=== PATIENT | male | born 1950 | race Caucasian/White ===

== ENCOUNTER 2022-12-27 15:45 | Outpatient (CLI) | payer MEDICARE, SELFPAY ==
--- NOTE | 2022-12-27 16:30 | PET_ITS ---
EXAMINATION: FDG PET-CT INDICATIONS: A 72-year-old male with history of colorectal carcinoma presenting for apparent initial staging examination. COMPARISON EXAMINATION: None available. INDEX LESION SIZE SUV INTERPRETATION Proximal ascending colon 53.5-mm 9.6 Fulfills quantitative criteria for viable neoplasm Distal transverse colon 49.6-mm 23.0 Fulfills quantitative criteria for viable neoplasm Right lower lung field, right lower lobe 14.6-mm 2.8 Fulfills quantitative criteria for viable neoplasm, histopathologic investigation recommended NON-INDEX LESION SIZE SUV INTERPRETATION Superior-carinal level mediastinum 2.7 (max) Quantitative criteria for viable neoplasm are not fulfilled TECHNIQUE: Following the intravenous administration of 12.4 mCi of F-18 deoxyglucose via the right hand, multiplanar image acquisitions of the neck, chest, abdomen and pelvis to level of mid thigh, obtained at one hour post radiopharmaceutical administration contemporaneously interpreted with the current CT of the neck, chest, abdomen and pelvis, to level of mid thigh, dated 12/27/22 via coregistration reveals: BLOOD GLUCOSE LEVEL:?? 191 mg/dl?HEIGHT:?73 inches?WEIGHT: 210 lbs. FINDINGS: Head/Neck: There is no evidence of abnormal increased glucose metabolism in the pharyngeal mucosal space, parapharyngeal space, bilateral-lateral and anterior neck, hypopharynx and distribution of the laryngeal structures. The visualized portion of the cerebral cortical-subcortical structures demonstrate symmetric and preserved glucose metabolism. CHEST: Mild increased radiopharmaceutical concentration is defined in the superior-carinal level mediastinum to the left and right of the midline with a calculated maximal standard uptake value of 2.7. Strict quantitative criteria for viable neoplasm are not fulfilled. An increase in radiopharmaceutical concentration is noted in the right lower posteromedial lung zone, right lower lobe generating a calculated maximal standard uptake value of 2.8. The maximal axial diameter of the metabolic, morphologic abnormality is 14.6-mm. Pertinent chest CT findings are as follows. Atherosclerotic calcification is defined in the thoracic aorta. The maximal axial diameter of the ascending thoracic aorta is 44.3-mm. Coronary arterial calcification is observed. Bilateral hemithorax pleural effusions are non-glucose avid. Calcification defined within the bilateral hemithorax demonstrates no evidence of glucose avidity. A pericardial effusion is ametabolic. Abdomen/Pelvis: Increased glucose metabolism is noted in two locations involving the intestinal tract to include the proximal ascending and distal transverse colon. The calculated maximal standard uptake value is 9.6 and 23.0 respectively. The maximal axial diameters of the metabolic, morphologic abnormalities are 53.5 and 49.6-mm. Normal physiologic distribution of the radiopharmaceutical is apparent in the hepatic (4.1) and splenic parenchyma, both renal units, bladder and remaining visualized intestinal tract. The abdomen and pelvis CT findings are as follows. Bilateral inguinal soft tissue densities with fatty hilus are non-glucose avid. Calcification is defined within the pancreatic tail. There is atherosclerotic calcification defined in the abdominal aorta without evidence of dilatation-aneurysm formation. Abdominal-pelvic arterial calcification is observed. A fat containing left inguinal hernia is noted. Skeletal: Degenerative changes are noted in the cervical, thoracic and lumbar spine without evidence of increased radiopharmaceutical concentration. There are no well-defined sclerotic-lytic changes manifest on review of the appendicular-axial skeletal structures. PET/PET/CT Tumor Base -Thigh Init IMPRESSION: 1. ABNORMAL EXAMINATION INDICATIVE OF MALIGNANT VIABLE NEOPLASM. 2. Increased radiopharmaceutical concentration noted in both the proximal ascending and distal transverse colon fulfill quantitative criteria for viable neoplasm. 3. Enhanced tracer uptake noted in the right lower lung field, right lower lobe fulfills quantitative criteria for viable neoplasm with single point technique. Histopathologic investigation is recommended. 4. Mediastinal increased radiopharmaceutical concentration does not fulfill quantitative criteria for malignant transformation. Electronic Signature Guillaume Hwang D.O. Accurate Quantification of SUVs for this report are calculated using the exclusive [employer]. ([place] Patent No. [id number] B2 [phone] patent [phone]). Standardization and correction of the FDG SUV metric via [employer] technology allow for vendor non-specific objective quantitative examination comparison and optimization of the sensitivity and specificity of the FDG PET-CT examination. Electronically Signed: Guillaume Hwang, at 23:34 EDT ,
== END 2022-12-27 23:59 | disposition home or self-care (01) ==
PROVIDERS: PCP Family Medicine; Referring Provider Surgery; Visit Provider Surgery
DX: C18.8 Malignant neoplasm of overlapping sites of colon (principal); C18.6 Malignant neoplasm of descending colon
CPT/HCPCS: 78815; A9552